=== PATIENT | female | born 1950 | race Caucasian/White ===

== ENCOUNTER 2019-10-20 13:56 | Inpatient (IN) ==
[2019-10-20] MEDS ORDERED: SODIUM CHLORIDE 0.9% 250 ML IV PRN (15:46)
--- NOTE | 2019-10-20 16:03 | History & Physical Report ---
Date of Service October 20, 2019 Assessment & Plan (1) Anemia: Uncertain etiology Recent dark stools may have been indicative of GIB, however this could also have been due to recent use of black walnut supplement Pt with hx of heavy ibuprofen use, however this has been less for the last 3 months No hx of c-scope Hb 4.2 in OSH ED, repeat s/p 2 units PRBC and again in AM Heme neg in OSH ED No PRBC given prior to transfer GI c/s pending Lyme pending Also with recent weight loss Pt taking black walnut, artemisis, and colloidal silver for about a month. I can find no data to suggest that any of these can cause GIB Black walnut is also used as a dye, which could explain the dark stools after recent use but neg hemoccult In general, colloidal silver is supplement that I do not advise pts to use, even in the short term due to high risk of side effects LFTs WNL at OSH WBC, platelets, PRP WNL at OSH (2) DVT prophylaxis: SCDs given above History of Present Illness Primary Care Provider: Kt Daniel 69 y/o F who was transferred to [facility] from [facility] ED for Hb 4.3. This transfer occurred due to temporary lack of GI services at their facility. Pt states she has felt tired for about the last year. She has hx of Lyme disease that she was treated for about 4 yrs ago and this felt similar, so she did not seek care. Over the last 4-5 months, pt has had worsening HANSEN to the point that she cannot even walk to her sofa without HANSEN and feeling "played out". She states that recently she has been having "dizzy spells" in which she feels like she might pass out. The most recent was a few days ago in [facility]. She states that for about 2 weeks she noted dark black stools, but then she was constipated for about 2 days and when she had a bowel movement, it was regular color. She denies seeing any blood in her stool during this time. No abd pain, n/v. She states she has felt fine otherwise. Pt denies fever, chest pain, LE pain or swelling. Pt states she went to PCP today for this issue and labs were ordered. She was called at home to go to the ED due to a low Hb. She did not receive blood prior to transfer to [facility]. Pt states hx of blood transfusion shortly before the delivery of all three of her children in 1971, 1978, and 1981. She has no other prior hx of blood transfusions. She has never had a c-scope. Pt notes that she took black walnut, artemisia, and "some sort of liquid" that when suggested it may have been colloidal silver, she states that this is the third product. She was advised to try these supplements by a friend and took them for the month of September. She stopped recently when her sx continued to worsen. Pt notes that over the last year she had been taking ibuprofen, 4tabs 3x/day "to get by". She states it was helping for a while with her fatigue. Denies taking it for pain purposes. Her sx continued to worsen, so for the last 3 months she has been taking it only once a day. Pt states she has not felt like eating much due to her fatigue and has lost about 20lbs in 4 months. Allergies Allergy/AdvReac Type Severity Reaction Status Date / Time Penicillins AdvReac Unknown swelling Unverified 02/01/11 11:37 at injection site Home Medications Home Medications Medication Instructions Recorded Confirmed Type None (Patient States No Home Meds) #0 02/01/11 History Past Med/Surg History Family History (Updated 10/20/19 @ 16:36 by Shraddha Shultz DO) Mother Myocardial infarction Father Lymphoma Denies family history of Colorectal cancer Social History (Updated 10/20/19 @ 16:01 by Shraddha Shultz DO) Preferred Language: French Communication Ability: Effective Processing Rep Required: No Beliefs That Will Affect Care: None Current Living Situation: Spouse Feels Safe at Home: Yes Smoking Status: Former smoker Tobacco Type: cigarettes ; Do You Dip or Chew Tobacco: No ; Smoking End Date: ; Second Hand Exposure: No ; Hx Alcohol Use: No Hx Substance Use: No Review of Systems Review of Systems: Pertinent positives and negatives reviewed in HPI--all others negative Physical Exam Constitutional: WD/WN, vitals as above Eyes: normal visual mayo by confrontation and + anicteric sclerae Neck: normal visual inspection and trachea midline Respiratory: normal respiratory effort, lungs clear to auscultation Cardiovascular: Rate/Rhythm: regular rate and regular rhythm Gastrointestinal (Abdomen): Inspection/Auscultation: abdomen not distended Percussion/Palpation: abdomen soft; abdomen nontender Musculoskeletal: Head/Neck/Chest: normocephalic and head atraumatic negative for edema, peripheral pulses intact Skin: + pallor; no jaundice Neurologic: awake; not confused Speech / Cognition: normal speech Psychiatric: A+Ox3, euthymic affect Results & Data ECG Rhythm: normal sinus Code Status & VTE Plan Code Status Full code VTE Prophylaxis Plan VTE Prophylaxis will be ordered: Yes PG Care Time/CCT Total # of Minutes Spent Total Time Spent with Patient: Total time spent is greater than 50% in coordination of care (as documented) at patient's floor/unit and/or counseling patient: Coding Level of Care Code 80370 Initial Inpt Care Lvl 3 Diagnoses Anemia D64.9 DVT prophylaxis Z29.9
[2019-10-20] MEDS ORDERED: ONDANSETRON INJ 2 MG/ML 2 ML VIAL IV PRN (16:10)
[2019-10-20] MEDS ORDERED: MAGNESIUM HYDROXIDE SUSP 30 ML UDC PO PRN (16:10)
[2019-10-20] MEDS: D5W AND 1/2NSS + 20MEQ KCL 20 MEQ/1,000 ML BAG IV SCH (17:13)
[2019-10-20 17:45] LABS: Lyme Ab IgG w/WB Rflx Negative (Negative)
[2019-10-20 17:47] LABS: Lyme Ab IgM w/WB Rflx Positive (Negative)
[2019-10-21 01:16] LABS: Hemoglobin 6.6 g/dL (12.0-16.0)
[2019-10-21] MEDS ORDERED: SODIUM CHLORIDE 0.9% 250 ML IV PRN ×2 (01:38→01:50)
--- NOTE | 2019-10-21 09:08 | Gastrointestinal Consultation ---
Date of Consultation October 21, 2019 Assessment & Plan (1) Symptomatic anemia: ddx includes PUD vs. AVM vs. other etiology. Recs: 1. start protonix 40 mg BID 2. keep NPO 3. insert 2 large bore IVs 4. plan for EGD today to further evaluate 5. risks/benefits and procedure discussed with patient, who agrees to proceed thank you for allowing me to participate in the care of this patient. History of Present Illness Attending Physician: Patrick Medina 69 yo female here with symptomatic anemia. She notes worsening dyspnea, dizziness for the last few months, says symptoms have been going on for a year. She has been taking ibuprofen 400 mg TID for last 3 months and was previously taking 800 mg TID for the 9 months before that. No overt rectal bleeding, melena, hematemesis, epistaxis, n/v, open wounds. She denies prior egd and colonoscopy. Labs reviewed, notable for anemia, s/p 2 units PRBC. Allergies Allergy/AdvReac Type Severity Reaction Status Date / Time Penicillins AdvReac Unknown swelling Unverified 02/01/11 11:37 at injection site Home Medications Home Medications Medication Instructions Recorded Confirmed Type None (Patient States No Home Meds) #0 02/01/11 History Patient History Family History (Updated 10/20/19 @ 16:36 by Shraddha Shultz DO) Mother Myocardial infarction Father Lymphoma Denies family history of Colorectal cancer Social History (Updated 10/20/19 @ 16:01 by Shraddha Shultz DO) Preferred Language: Lithuanian Communication Ability: Effective Fraternity House Cook Required: No Beliefs That Will Affect Care: None Current Living Situation: Spouse Feels Safe at Home: Yes Smoking Status: Former smoker Tobacco Type: cigarettes ; Do You Dip or Chew Tobacco: No ; Smoking End Date: ; Second Hand Exposure: No ; Hx Alcohol Use: No Hx Substance Use: No Physical Exam Constitutional: well developed; + not well nourished and no acute distress Results & Data ([facility]) Vital Signs (Past 12 Hours) Vital Signs Temp Pulse Pulse Resp BP BP Pulse Ox 10/21/19 08:05 85 140/73 10/21/19 07:45 36.7 C 63 20 145/73 H 98 10/21/19 06:45 36.8 C 65 16 162/73 H 97 10/21/19 06:15 36.7 C 61 18 145/64 H 97 10/21/19 06:00 36.8 C 62 16 149/69 H 98 10/21/19 05:44 36.8 C 63 14 144/73 H 97 10/21/19 05:36 36.8 C 62 18 152/69 H 97 10/21/19 04:29 36.8 C 62 20 146/72 H 98 10/21/19 03:30 36.8 C 68 18 161/67 H 98 10/21/19 03:00 36.8 C 59 L 18 152/69 H 99 10/21/19 02:45 36.8 C 58 L 18 152/77 H 98 10/21/19 02:30 36.8 C 68 16 148/60 H 98 10/21/19 00:00 66 10/20/19 23:51 36.8 C 62 16 155/74 H 98 10/20/19 23:21 36.8 C 64 16 141/63 H 98 10/20/19 23:02 36.7 C 64 16 145/62 H 97 10/20/19 22:51 36.7 C 63 153/66 H 10/20/19 22:32 36.8 C 64 151/73 H 10/20/19 22:17 36.7 C 65 145/73 H 10/20/19 21:55 36.7 C 62 149/68 H 100 10/20/19 21:42 36.8 C 65 17 148/73 H 100 PG Care Time/CCT Total # of Minutes Spent Total Time Spent with Patient: Total time spent is greater than 50% in coordination of care (as documented) at patient's floor/unit and/or counseling patient: Coding Level of Care Code 42948 Initial Inpt Care Lvl 3 Diagnoses Symptomatic anemia D64.9
[2019-10-21 10:53] LABS: Basophils # (auto) 0.05 K/uL (0-0.2); Basophils % (auto) 0.8 %; Eosinophils # (auto) 0.08 K/uL (0-0.5); Eosinophils % (auto) 1.3 %; Hematocrit (blood only) 29.4 % (37-47); Immature Granulocytes # (auto) 0.04 K/uL (0.00-0.02); Immature Granulocytes % (auto) 0.7 %; Lymphocytes # (auto) 1.26 K/uL (1.2-3.4); Lymphocytes % (auto) 20.7 %; Mean Corpuscular Hemoglobin 23.3 pg (25-34); Mean Corpuscular Hgb Conc 30.6 g/dL (32-36); Mean Corpuscular Volume 76.2 fL (80-100); Mean Platelet Volume 9.9 fL (7.4-10.4); Monocytes # (auto) 0.49 K/uL (0.11-0.59); Neutrophils # (auto) 4.17 K/uL (1.4-6.5); Neutrophils % (auto) 68.5 %; Platelet Count 318 K/uL (130-400); RDW Coefficient of Variation 22.3 % (11.5-14.5); RDW Standard Deviation 62.2 fL (36.4-46.3); Red Blood Count 3.86 M/uL (4.2-5.4); White Blood Count 6.09 K/uL (4.8-10.8)
[2019-10-21] MEDS: D5W AND 1/2NSS + 20MEQ KCL 20 MEQ/1,000 ML BAG IV SCH ×3 (10:57→18:20)
[2019-10-21 11:00] LABS: BUN Creatinine Ratio 12.8 (10-20); Calcium 8.5 mg/dl (8.5-10.1); Creatinine Clr Calc Pharmacy 80.4 ml/min; Est GFR (African American) 97.4; Potassium 4.1 mmol/L (3.5-5.1)
[2019-10-21 11:10] LABS: Thyroid Stimulating Hormone 1.66 uIu/ml (0.300-4.500)
[2019-10-21 11:33] LABS: Anisocytosis Present; Polychromasia 1+; Rouleaux 1+
--- NOTE | 2019-10-21 15:07 | Anesthesiology Consultation ---
Date of Service October 21, 2019 Assessment & Plan Chart Review Chart Review: Acceptable Risk for Surgery and Patient NOT seen in Pre Admission Testing Consults Requested none ASA ASA3 Proposed Anesthesia Anesthesia Type: MAC History Surgery Operation Date: 10/21/19 16:00 Proposed Procedures p Esophagogastroduodenoscopy Dr. Marco Lara MD Height/Weight Height: 5 ft 6 in Weight: 86.1 kg Allergies Allergy/AdvReac Type Severity Reaction Status Date / Time Penicillins AdvReac Unknown swelling Unverified 02/01/11 11:37 at injection site Medications Home Medications Medication Instructions Recorded Confirmed Last Taken None (Patient States No Home Meds) #0 02/01/11 Unknown Active Medications Generic Name Dose Route Start Last Admin Trade Name Freq PRN Reason Stop Dose Admin Potassium Chloride/Dextrose/Sod Cl 20 meq in 1,000 mls @ 120 mls/hr 10/20/19 16:10 10/21/19 15:04 D5w And 1/2nss + 20meq Kcl IV 11/19/19 16:09 0 mls/hr .Q8H20M LC Infusion Exercise / Class Metabolic Activity III < 4 Walking/Shop/Light housework Past Family History Family History Mother Myocardial infarction Father Lymphoma Denies family history of Colorectal cancer Past Anesthesia History No Hx of Anesthesia Complications and No Family Hx of Anesthesia Complications History of PONV No Hx of PONV and No Hx of Motion Sickness Social History Smoking Status: Former smoker tobacco type: cigarettes Do You Dip or Chew Tobacco: No Smoking End Date: Hx Alcohol Use: No Hx Substance Use: No Physical Exam Vital Signs Last Vital Signs Temp 36.7 C 10/21/19 11:21 Pulse 63 10/21/19 11:21 Resp 20 10/21/19 11:21 BP 169/75 H 10/21/19 11:21 Pulse Ox 100 10/21/19 11:21 Testing Laboratory Results 10/21/19 10:32 10/21/19 10:32 Blood Type A Positive 10/20/19 17:56 Antibody Screen NEGATIVE 10/20/19 17:56
[2019-10-21] MEDS ORDERED: ePHEDrine sulfate 50 MG/ML AMP IV PRN (15:13)
[2019-10-21] MEDS ORDERED: ATROPINE SULFATE 0.1 MG/ML 10ML SYR IV PRN (15:13)
[2019-10-21] MEDS ORDERED: PROPOFOL IV EMULSION 10 MG/ML 20 ML VIAL IV ONE (15:42)
[2019-10-21] MEDS ORDERED: LIDOCAINE HCL 2% 2 ML VIAL/AMP(20MG/ML) INFIL ONE (15:42)
--- NOTE | 2019-10-21 16:14 | GI REPORT ---
Patient Name: Kim Clancy Procedure Date: 10/21/2019 3:23 PM Date of : 1950 Admit Type: Inpatient Age: 69 Gender: Female Attending MD: Rock Lara MD Procedure: Upper GI endoscopy Providers: Rock Lara MD Referring MD: Patrick Medina M.d. Indications: Iron deficiency anemia secondary to chronic blood loss Medicines: Monitored Anesthesia Care Complications: No immediate complications. Estimated blood loss: None. Estimated Blood Loss: Estimated blood loss: none. Procedure: Pre-Anesthesia Assessment: - Prior Anticoagulants: The patient has taken no previous anticoagulant or antiplatelet agents. - ASA Grade Assessment: III - A patient with severe systemic disease. After obtaining informed consent, the endoscope was passed under direct vision. Throughout the procedure, the patient's blood pressure, pulse, and oxygen saturations were monitored continuously. The scope was introduced through the mouth, and advanced to the second part of duodenum. The upper GI endoscopy was accomplished without difficulty. The patient tolerated the procedure well. Findings: The examined esophagus was normal. One non-bleeding linear gastric ulcer with no stigmata of bleeding was found in the gastric fundus. Estimated blood loss: none. Diffuse moderate inflammation characterized by erythema was found in the stomach. Biopsies were taken with a cold forceps for Helicobacter pylori testing. Estimated blood loss: none. The duodenal bulb and second portion of the duodenum were normal. No active bleeding nor old blood noted throughout entire procedure. A small hiatal hernia was present. Impression: - Normal esophagus. - Non-bleeding gastric ulcer with no stigmata of bleeding. - Gastritis. Biopsied. - Normal duodenal bulb and second portion of the duodenum. Recommendation: - Return patient to [facility] for [facility] care. - Clear liquid diet today. - Await pathology results. trend H/H, transfuse prn -protonix 40 mg BID for 3 months -if anemia persists will need colonoscopy (likely as an outpatient) Rock Lara MD 10/21/2019 4:13:51 PM This report has been signed electronically. Note Initiated On: 10/21/2019 3:23 PM Number of Addenda: 0 I attest to the content of the Intraoperative Record and orders documented therein, exceptions below {[id number]}
--- NOTE | 2019-10-21 16:18 | Procedure Note ---
Procedure Note Date of Service October 21, 2019 GI brief procedure note: see full report for details EGD findings: gastritis, gastric ulcer (clean based, nonbleeding), hiatal hernia. no active bleeding nor old blood present. Recs: --protonix 40 mg BID for 3 months --trend h/h supportive care --if anemia persists will need colonoscopy, likely as outpatient Rock Lara MD Gastroenterology Coding
--- NOTE | 2019-10-21 16:26 | Anesthesiology Progress Note ---
Date of Service October 21, 2019 Anesthesia Post Procedure Vital Signs Vital Signs: Temp Pulse Pulse Resp BP BP Pulse Ox 10/21/19 16:20 65 16 166/80 H 98 10/21/19 16:05 74 16 139/78 95 10/21/19 15:09 37.2 C 72 20 156/70 H 99 10/21/19 11:21 36.7 C 63 20 169/75 H 100 10/21/19 08:05 85 140/73 10/21/19 07:45 36.7 C 63 20 145/73 H 98 10/21/19 06:45 36.8 C 65 16 162/73 H 97 10/21/19 06:15 36.7 C 61 18 145/64 H 97 10/21/19 06:00 36.8 C 62 16 149/69 H 98 10/21/19 05:44 36.8 C 63 14 144/73 H 97 10/21/19 05:36 36.8 C 62 18 152/69 H 97 10/21/19 04:29 36.8 C 62 20 146/72 H 98 10/21/19 03:30 36.8 C 68 18 161/67 H 98 10/21/19 03:00 36.8 C 59 L 18 152/69 H 99 10/21/19 02:45 36.8 C 58 L 18 152/77 H 98 10/21/19 02:30 36.8 C 68 16 148/60 H 98 10/21/19 00:00 66 10/20/19 23:51 36.8 C 62 16 155/74 H 98 10/20/19 23:21 36.8 C 64 16 141/63 H 98 10/20/19 23:02 36.7 C 64 16 145/62 H 97 10/20/19 22:51 36.7 C 63 153/66 H 10/20/19 22:32 36.8 C 64 151/73 H 10/20/19 22:17 36.7 C 65 145/73 H 10/20/19 21:55 36.7 C 62 149/68 H 100 10/20/19 21:42 36.8 C 65 17 148/73 H 100 10/20/19 20:30 36.6 C 61 151/62 H 10/20/19 20:00 36.8 C 70 15 145/64 H 100 10/20/19 19:48 36.6 C 63 13 138/68 10/20/19 19:25 36.8 C 66 18 132/72 100 10/20/19 19:13 36.9 C 71 16 134/65 100 Transfer of Care Handoff Completed per policy Notes Mental Status: alert / awake / arousable and participated in evaluation Nausea / Vomiting: adequately controlled Pain: adequately controlled Airway Patency, RR, SpO2: stable & adequate BP & HR: stable & adequate Hydration State: stable & adequate Anesthetic Complications: no major complications apparent and Pt Satisfied with anesthetic care
[2019-10-21 18:50] LABS: Hematocrit (blood only) 31.5 % (37-47); Hemoglobin 9.6 g/dL (12.0-16.0)
--- NOTE | 2019-10-21 21:09 | Hospitalist Progress Note ---
Date of Service October 21, 2019 Assessment & Plan (1) Anemia: Uncertain etiology Recent dark stools may have been indicative of GIB, however this could also have been due to recent use of black walnut supplement Pt with hx of heavy ibuprofen use, however this has been less for the last 3 months No hx of c-scope Hb 4.2 in OSH ED, repeat s/p 2 units PRBC and again in AM Heme neg in OSH ED No PRBC given prior to transfer Appreciated GI input. Patient had upper GI endoscopy. Did not show evidence of a bleed. Will continue to monitor hemoglobin tonight and in AM. Will likely be discharged on PPI BID. Pt taking black walnut, artemisis, and colloidal silver for about a month. I can find no data to suggest that any of these can cause GIB Black walnut is also used as a dye, which could explain the dark stools after recent use but neg hemoccult In general, colloidal silver is supplement that I do not advise pts to use, even in the short term due to high risk of side effects LFTs WNL at OSH WBC, platelets, PRP WNL at OSH (2) DVT prophylaxis: SCDs given above Admission and Anticipated Discharge Date Admission Date: October 20, 2019 Subjective 69 yo female reports that she had just returned from an upper endoscopy. She currently denies any abdominal pain. She denies any bloody stools, dark stools, nausea or vomiting. Review of Systems Review of Systems: All systems reviewed & are unremarkable except as noted in HPI & below Physical Exam Physical Exam: Constitutional: WD/WN, vitals as above Eyes: normal visual mayo by confrontation and + anicteric sclerae Neck: normal visual inspection and trachea midline Respiratory: normal respiratory effort, lungs clear to auscultation Cardiovascular: Rate/Rhythm: regular rate and regular rhythm Gastrointestinal (Abdomen): Inspection/Auscultation: abdomen not distended Percussion/Palpation: abdomen soft; abdomen nontender Musculoskeletal: Head/Neck/Chest: normocephalic and head atraumatic negative for edema, peripheral pulses intact Skin: + pallor; no jaundice Neurologic: awake; not confused Speech / Cognition: normal speech Psychiatric: A+Ox3, euthymic affect Results & Data ([facility]) Vital Signs (Past 12 Hours) Vital Signs Temp Pulse Resp BP Pulse Ox 10/21/19 19:23 36.6 C 71 16 164/61 H 100 10/21/19 17:09 36.6 C 68 18 159/77 H 100 10/21/19 16:36 62 20 171/80 H 100 10/21/19 16:20 65 16 166/80 H 98 10/21/19 16:05 74 16 139/78 95 10/21/19 15:09 37.2 C 72 20 156/70 H 99 10/21/19 11:21 36.7 C 63 20 169/75 H 100 PG Care Time/CCT Total # of Minutes Spent Total Time Spent with Patient: Total time spent is greater than 50% in coordination of care (as documented) at patient's floor/unit and/or counseling patient: Coding Level of Care Code 06610 Subseq Hosp Care Lvl 3 Diagnoses Anemia D64.9 DVT prophylaxis Z29.9 Time Spent (min) 35 Comment first encounter with patient.
--- NOTE | 2019-10-22 08:17 | Anesthesiology Progress Note ---
Date of Service October 22, 2019 Anesthesia Post Procedure Vital Signs Vital Signs: Temp Pulse Pulse Resp BP Pulse Ox 10/22/19 08:15 36.8 C 69 18 149/64 H 97 10/22/19 05:05 36.9 C 60 19 141/73 H 98 10/22/19 00:15 63 10/21/19 23:28 36.9 C 64 16 146/63 H 98 10/21/19 19:23 36.6 C 71 16 164/61 H 100 10/21/19 17:09 36.6 C 68 18 159/77 H 100 10/21/19 16:36 62 20 171/80 H 100 10/21/19 16:20 65 16 166/80 H 98 10/21/19 16:05 74 16 139/78 95 10/21/19 15:09 37.2 C 72 20 156/70 H 99 10/21/19 11:21 36.7 C 63 20 169/75 H 100 Notes Mental Status: alert / awake / arousable and participated in evaluation Patient Amnestic to Procedure: Yes Nausea / Vomiting: adequately controlled Pain: adequately controlled Airway Patency, RR, SpO2: stable & adequate BP & HR: stable & adequate Hydration State: stable & adequate Anesthetic Complications: no major complications apparent and Pt Satisfied with anesthetic care
[2019-10-22] MEDS ORDERED: PANTOprazole 40 MG TAB PO SCH (09:00)
[2019-10-22 10:38] LABS: Hematocrit (blood only) 31.2 % (37-47); Hemoglobin 9.4 g/dL (12.0-16.0); Mean Corpuscular Hemoglobin 23.2 pg (25-34); Mean Corpuscular Hgb Conc 30.1 g/dL (32-36); Mean Platelet Volume 9.8 fL (7.4-10.4); Platelet Count 303 K/uL (130-400); RDW Coefficient of Variation 22.7 % (11.5-14.5); RDW Standard Deviation 64.8 fL (36.4-46.3); Red Blood Count 4.05 M/uL (4.2-5.4); White Blood Count 5.83 K/uL (4.8-10.8)
[2019-10-22 11:04] LABS: BUN Creatinine Ratio 9.4 (10-20); Calcium 8.6 mg/dl (8.5-10.1); Creatinine Clr Calc Pharmacy 68.3 ml/min; Est GFR (Non-African American) 69.9; Potassium 3.5 mmol/L (3.5-5.1)
[2019-10-26 09:59] LABS: 18KDIGG Band REACTIVE; 23KDIGG Band REACTIVE; 23KDIGM Band REACTIVE; 28KDIGG Band NON-REACTIVE; 30KDIGG Band NON-REACTIVE; 39KDIGG Band NON-REACTIVE; 39KDIGM Band NON-REACTIVE; 41KDIGG Band REACTIVE; 41KDIGM Band NON-REACTIVE; 45KDIGG Band NON-REACTIVE; 58KDIGG Band NON-REACTIVE; 66KDIGG Band NON-REACTIVE; 93KDIGG Band NON-REACTIVE; Lyme Antibodies, WB IgG NEGATIVE (NEGATIVE); Lyme Antibodies, WB IgM NEGATIVE (NEGATIVE)
--- NOTE | 2019-10-28 00:04 | Discharge Summary ---
Date of Service October 22, 2019 Admission HPI Per Admitting Provider 69 y/o F who was transferred to [facility] from [facility] ED for Hb 4.3. This transfer occurred due to temporary lack of GI services at their facility. Pt states she has felt tired for about the last year. She has hx of Lyme disease that she was treated for about 4 yrs ago and this felt similar, so she did not seek care. Over the last 4-5 months, pt has had worsening HANSEN to the point that she cannot even walk to her sofa without HANSEN and feeling "played out". She states that recently she has been having "dizzy spells" in which she feels like she might pass out. The most recent was a few days ago in [facility]. She states that for about 2 weeks she noted dark black stools, but then she was constipated for about 2 days and when she had a bowel movement, it was regular color. She denies seeing any blood in her stool during this time. No abd pain, n/v. She states she has felt fine otherwise. Pt denies fever, chest pain, LE pain or swelling. Pt states she went to PCP today for this issue and labs were ordered. She was called at home to go to the ED due to a low Hb. She did not receive blood prior to transfer to [facility]. Pt states hx of blood transfusion shortly before the delivery of all three of her children in 1971, 1978, and 1981. She has no other prior hx of blood transfusions. She has never had a c-scope. Pt notes that she took black walnut, artemisia, and "some sort of liquid" that radha reveles suggested it may have been colloidal silver, she states that this is the third product. She was advised to try these supplements by a friend and took them for the month of September. She stopped recently when her sx continued to worsen. Pt notes that over the last year she had been taking ibuprofen, 4tabs 3x/day "to get by". She states it was helping for a while with her fatigue. Denies taking it for pain purposes. Her sx continued to worsen, so for the last 3 months she has been taking it only once a day. Pt states she has not felt like eating much due to her fatigue and has lost about 20lbs in 4 months. Principal Diagnosis Anemia Discharge Exam Constitutional: WD/WN, vitals as above Eyes: normal visual mayo by confrontation and + anicteric sclerae Neck: normal visual inspection and trachea midline Respiratory: normal respiratory effort, lungs clear to auscultation Cardiovascular: Rate/Rhythm: regular rate and regular rhythm Gastrointestinal (Abdomen): Inspection/Auscultation: abdomen not distended Percussion/Palpation: abdomen soft; abdomen nontender Musculoskeletal: Head/Neck/Chest: normocephalic and head atraumatic negative for edema, peripheral pulses intact Skin: + pallor; no jaundice Neurologic: awake; not confused Speech / Cognition: normal speech Psychiatric: A+Ox3, euthymic affect Discharge Data Allergies Allergy/AdvReac Type Severity Reaction Status Date / Time Penicillins AdvReac Unknown swelling Unverified 10/21/19 15:08 at injection site Consultations 10/20/19 15:53 Consult Gastroenterology Routine Procedures Performed Operation Date: 10/21/19 16:00 Actual Procedures p EGD Biopsy Cytology - Rock Lara MD Hospital Course (1) Anemia: Uncertain etiology Recent dark stools may have been indicative of GIB, however this could also have been due to recent use of black walnut supplement Pt with hx of heavy ibuprofen use, however this has been less for the last 3 months No hx of c-scope Hb 4.2 in OSH ED, repeat s/p 2 units PRBC and again in AM Heme neg in OSH ED No PRBC given prior to transfer Appreciated GI input. Patient had upper GI endoscopy. Did not show evidence of a bleed. Monitored hemoglobin overnight and this was stable. will recheck in about 5 days. Will be discharged on PPI BID. Pt taking black walnut, artemisis, and colloidal silver for about a month. I can find no data to suggest that any of these can cause GIB Black walnut is also used as a dye, which could explain the dark stools after recent use but neg hemoccult In general, colloidal silver is supplement that I do not advise pts to use, even in the short term due to high risk of side effects will recommend to stop supplements LFTs WNL at OSH WBC, platelets, PRP WNL at OSH (2) DVT prophylaxis: SCDs given above Total Time Total Time Spent Total Time Spent (In Minutes): 32 Total Time Includes: Examination of the Patient, Discharge Planning and Medication Reconciliation Discharge Plan Discharge Items Patient Disposition: Home - Self-Care Reason For Visit: ACUTE GI BLEED Discharge Diagnosis: Acute GI bleed Activity: Resume your previous activity Non-emergency contact: Primary Care Provider Call non-emergency contact if: you have any medication questions Follow-up/Referrals: Kt Daniel [Primary Care Provider] - 10/25/19 10:00 am (FOLLOW- UP APPT WITH GARY LR AT THE [place] [facility].) Diet: Regular Addtl Attending Provider Instructions: You have been hospitalized for an acute medical problem. During your stay at [facility], we have made an effort to correct the problem that brought you to the hospital while keeping you as comfortable as possible. Medications were used to bring your condition under control and your discharge instructions will include directions for any medications you should take after leaving the hospital. Please make sure you see your Primary Care Provider as part of your follow up plan. You were found to have a low blood count. Since instituting a PPI which is a drug that protects the stomach lining by stopping acid production. Your count has been stable. Will continue to monitor your levels, and will recommend checking in 4 days. Will give you an order slip for this. Will recommend to stop your supplements for now until you are seen by your PCP. Pending Studies at Discharge: No Stand-Alone Forms: My [facility], Smoking Cessation Medications and DC Order Prescriptions: New pantoprazole 40 mg Tablet,Delayed Release (Dr/Ec) 40 mg PO BID Qty: 60 RF: 0 Discontinued None (Patient States No Home Meds) . Qty: 0 RF: 0 Discharge Orders: Discharge Order (Routine); Ordered 10/22/19 Ordered By: Patrick Medina Admission Data Admit Date/Time: 10/20/19 15:06 Attending Provider: Patrick Medina Admit Provider: Shraddha Shultz Primary Care Provider: Kt Daniel Other Providers: Mohan Quintana Other Interventions: Discharge Summary Assessment (RN) Last Done: 10/22/19 14:25 DC Date/Time DO NOT enter until pt leaves facility: 10/22/19 15:11 Coding Level of Care Code D/C Day Management >30 mins Diagnoses Anemia D64.9 DVT prophylaxis Z29.9
== END 2019-10-22 15:11 | disposition home or self-care (01) | DRG 812 ==
LOC: 2E 15:06 → SUATTDRO 15:06
DX: D64.9 Anemia, unspecified